=== PATIENT | female | born 1960 | race Caucasian/White ===

== ENCOUNTER 2019-06-25 12:52 | Emergency (ER) | payer OTHER ==
[2019-06-25] MEDS ORDERED: ONDANSETRON 4 MG TAB.RAPDIS PO ONE (13:16)
--- NOTE | 2019-06-25 13:16 | ER Document Report ---
ED Medical Screen (RME) - General Chief Complaint: Abdominal Pain Stated Complaint: ABDOMINAL PAIN Time Seen by Provider: 06/25/19 13:15 Mode of Arrival: Ambulatory Information source: Patient Notes: 58-year-old female presented to ED for complaint of left-sidedPain to her abdomen upper and lower started about a month ago said at times it felt like heartburn at other times she was just nauseated. She states sometimes she vomited up acid but most times it was just nausea or heartburn she states they have been the worst pain. She did vomit up some acid earlier today. She states she does not smoke cigarettes but she does vape occasionally drinks and does not use any drugs. I have greeted and performed a rapid initial assessment of this patient. A comprehensive ED assessment and evaluation of the patient, analysis of test results and completion of medical decision making process will be conducted by an additional ED providers. TRAVEL OUTSIDE OF THE [place] IN LAST 30 DAYS: No - Related Data Allergies/Adverse Reactions: No Known Allergies Allergy (Verified 06/25/19 12:54) Physical Exam - Vital signs Vitals: Temp Pulse Resp BP Pulse Ox 98.2 F 105 H 18 141/80 H 97 06/25/19 12:59 06/25/19 12:59 06/25/19 12:59 06/25/19 12:59 06/25/19 12:59 Course - Vital Signs Vital signs: Temp Pulse Resp BP Pulse Ox 98.2 F 105 H 18 141/80 H 97 06/25/19 12:59 06/25/19 12:59 06/25/19 12:59 06/25/19 12:59 06/25/19 12:59
[2019-06-25 13:45] LABS: ABSOLUTE BASOPHILS # (AUTO) 0.1 10^3/uL (0.0-0.2); ABSOLUTE EOSINOPHILS # (AUTO) 0.1 10^3/uL (0.0-0.6); ABSOLUTE LYMPHOCYTES (AUTO) 1.9 10^3/uL (0.5-4.7); ABSOLUTE MONOCYTES (AUTO) 1.2 10^3/uL (0.1-1.4); ABSOLUTE NEUT (AUTO) 15.8 10^3/uL (1.7-8.2); BASOPHILS % (AUTO) 0.6 % (0-2); EOSINOPHILS % (AUTO) 0.4 % (0-6); HEMATOCRIT 40.1 % (36.0-47.0); HEMOGLOBIN 13.3 g/dL (12.0-15.5); LYMPHOCYTES % (AUTO) 10.1 % (13-45); MEAN CORPUSCULAR HEMOGLOBIN 28.9 pg (27.0-33.4); MEAN CORPUSCULAR HGB CONC 33.1 g/dL (32.0-36.0); MEAN CORPUSCULAR VOLUME 87 fl (80-97); MONOCYTES % (AUTO) 6.3 % (3-13); PLATELET COUNT 386 10^3/uL (150-450); RED CELL DISTRIBUTION WIDTH 14.5 % (11.5-14.0); SEGMENTED NEUTROPHILS % (AUTO) 82.6 % (42-78); TOTAL CELLS COUNTED % (AUTO) 100 %; WHITE BLOOD COUNT 19.1 10^3/uL (4.0-10.5)
[2019-06-25 13:51] LABS: APPEARANCE,URINE CLEAR; BILIRUBIN,URINE NEGATIVE (NEGATIVE); COLOR,URINE YELLOW; GLUCOSE, URINE NEGATIVE (NEGATIVE); KETONES,URINE TRACE mg/dL (NEGATIVE); LEUKOCYTE ESTERASE,URINE NEGATIVE (NEGATIVE); NITRITE,URINE NEGATIVE (NEGATIVE); PROTEIN,URINE NEGATIVE (NEGATIVE); URINE SPECIFIC GRAVITY 1.016; UROBILINOGEN,URINE NEGATIVE mg/dL (<2.0)
[2019-06-25 14:02] LABS: ALBUMIN 4.6 g/dL (3.5-5.0); ALKALINE PHOSPHATASE 74 U/L (38-126); ANION GAP 13 (5-19); ASPARTATE AMINO TRANSFERASE 17 U/L (14-36); BILIRUBIN,DIRECT 0.4 mg/dL (0.0-0.4); BILIRUBIN,TOTAL 0.5 mg/dL (0.2-1.3); BLOOD UREA NITROGEN 14 mg/dL (7-20); CALCIUM 9.9 mg/dL (8.4-10.2); CARBON DIOXIDE 26 mmol/L (22-30); CHLORIDE 99 mmol/L (98-107); GLUCOSE 112 mg/dL (75-110); POTASSIUM 4.1 mmol/L (3.6-5.0)
--- NOTE | 2019-06-25 15:38 | ER Document Report ---
ED General - General Chief Complaint: Abdominal Pain Stated Complaint: ABDOMINAL PAIN Time Seen by Provider: 06/25/19 13:15 Primary Care Provider: KENNETH SZYMANSKI MD [ACTIVE STAFF] - Follow up as needed VANDA OLEA MD [ACTIVE STAFF] - Follow up as needed ABRAHAN BARRON MD [ACTIVE STAFF] - Follow up as needed Mode of Arrival: Ambulatory Information source: Patient Notes: This 58-year-old relatively healthy female presents emergency department with complaints of left lower quad abdominal pain. Reports pain has been coming and going for the past month. She reports she has vomited twice since yesterday. She reports the pain woke her up last night. Denies fever and diarrhea. Reports last bowel movement was this AM was normal. Reports history of divertic ulitis. TRAVEL OUTSIDE OF THE [place] IN LAST 30 DAYS: No - HPI Onset: Other Onset/Duration: Persistent, Waxing and waning Severity: Moderate Pain Level: 3 Associated symptoms: Nausea, Vomiting Exacerbated by: Denies Relieved by: Denies Similar symptoms previously: No Recently seen / treated by doctor: No - Related Data Allergies/Adverse Reactions: No Known Allergies Allergy (Verified 06/25/19 12:54) Past Medical History - General Information source: Patient Last Menstrual Period: 6 years ago, menopause - Social History Smoking Status: Never Smoker Cigarette use (# per day): No Frequency of alcohol use: Rare Drug Abuse: None Lives with: Family Family History: Reviewed & Not Pertinent Patient has suicidal ideation: No Patient has homicidal ideation: No GI Medical History: Reports: Hx Diverticulitis Past Surgical History: Reports: Hx Orthopedic Surgery - b/l shoulders, wrist Review of Systems - Review of Systems Notes: Review HPI for review of systems., All other systems negative Physical Exam - Vital signs Vitals: Temp Pulse Resp BP Pulse Ox 98.2 F 105 H 18 141/80 H 97 06/25/19 12:59 06/25/19 12:59 06/25/19 12:59 06/25/19 12:59 06/25/19 12:59 - General General appearance: Appears well, Alert In distress: None - HEENT Head: Normocephalic, Atraumatic Eyes: Normal Conjunctiva: Normal Extraocular movements intact: Yes Neck: Normal, Supple. No: Lymphadenopathy - Respiratory Respiratory status: No respiratory distress Chest status: Nontender Breath sounds: Normal Chest palpation: Normal - Cardiovascular Rhythm: Regular Heart sounds: Normal auscultation Murmur: No - Abdominal Inspection: Normal Distension: No distension Bowel sounds: Normal Tenderness: Tender Organomegaly: No organomegaly Adult front & back diagram: 1 - llq abd pain - Back Back: Normal, Nontender. No: CVA tenderness - Extremities General upper extremity: Normal ROM General lower extremity: Normal ROM - Neurological Neuro grossly intact: Yes Cognition: Normal Orientation: AAOx4 [place] Coma Scale Eye Opening: Spontaneous [place] Coma Scale Verbal: Oriented [place] Coma Scale Motor: Obeys Commands [place] Coma Scale Total: 15 Speech: Normal - Psychological Associated symptoms: Normal affect, Normal mood - Skin Skin Temperature: Warm Skin Moisture: Dry Skin Color: Normal Course - Re-evaluation Re-evalutation: 06/25/19 15:40 This 58-year-old female with complaints of left lower quad abdominal pain for th e past month that comes and goes. Reports history of diverticulitis. WBC is 19.1. Slight shift. Will evaluate with CT of the abdomen. 06/25/19 16:40 CT shows diverticulitis. Patient instructed on antibiotics. Offered pain medication accepted Tylenol with codeine and Zofran. Patient reports she will follow-up with GI for evaluation and colonoscopy because she is past due. Patient was instructed to return the hospital for fever increased pain concerns. She verbalized understanding to all instructions. Abdomen/Pelvis CT 06/25/19 00:00 IMPRESSION: 1. Sigmoid diverticulitis with no perforation or abscess. 2. Questionable thickening of the wall of the ascending and transverse colon versus mere nondistention. Is there history of inflammatory bowel disease? 06/25/19 13:25 06/25/19 13:25 MCV 87 fl (80-97) 06/25/19 13:25 MCH 28.9 pg (27.0-33.4) 06/25/19 13:25 MCHC 33.1 g/dL (32.0-36.0) 06/25/19 13:25 RDW 14.5 % (11.5-14.0) H 06/25/19 13:25 Seg Neutrophils % 82.6 % (42-78) H 06/25/19 13:25 Chloride 99 mmol/L (98-107) 06/25/19 13:25 Carbon Dioxide 26 mmol/L (22-30) 06/25/19 13:25 Anion Gap 13 (5-19) 06/25/19 13:25 Est GFR ( Amer) > 60 (>60) 06/25/19 13:25 Glucose 112 mg/dL (75-110) H 06/25/19 13:25 Calcium 9.9 mg/dL (8.4-10.2) 06/25/19 13:25 Total Bilirubin 0.5 mg/dL (0.2-1.3) 06/25/19 13:25 AST 17 U/L (14-36) 06/25/19 13:25 Alkaline Phosphatase 74 U/L (38-126) 06/25/19 13:25 Total Protein 8.0 g/dL (6.3-8.2) 06/25/19 13:25 Albumin 4.6 g/dL (3.5-5.0) 06/25/19 13:25 Urine Color YELLOW 06/25/19 13:25 Urine Appearance CLEAR 06/25/19 13:25 Urine pH 6.0 (5.0-9.0) 06/25/19 13:25 Ur Specific [place] 1.016 06/25/19 13:25 Urine Protein NEGATIVE mg/dL (NEGATIVE) 06/25/19 13:25 Urine Glucose (UA) NEGATIVE mg/dL (NEGATIVE) 06/25/19 13:25 Urine Ketones TRACE mg/dL (NEGATIVE) H 06/25/19 13:25 Urine Blood MODERATE (NEGATIVE) H 06/25/19 13:25 Urine Nitrite NEGATIVE (NEGATIVE) 06/25/19 13:25 Ur Leukocyte Esterase NEGATIVE (NEGATIVE) 06/25/19 13:25 Urine WBC (Auto) 0 /HPF 06/25/19 13:25 Urine RBC (Auto) 8 /HPF 06/25/19 13:25 06/25/19 18:26 Dictation of this chart was performed using voice recognition software; therefore, there may be some unintended grammatical errors. - Vital Signs Vital signs: Temp Pulse Resp BP Pulse Ox 98.6 F 95 18 128/70 H 97 06/25/19 16:45 06/25/19 16:45 06/25/19 16:45 06/25/19 16:45 06/25/19 16:45 - Laboratory Result Diagrams: 06/25/19 13:25 06/25/19 13:25 Laboratory results interpreted by me: 06/25/19 06/25/19 06/25/19 13:25 13:25 13:25 WBC 19.1 H RDW 14.5 H Lymph % (Auto) 10.1 L Absolute Neuts (auto) 15.8 H Seg Neutrophils % 82.6 H Glucose 112 H Urine Ketones TRACE H Urine Blood MODERATE H - Diagnostic Test Radiology reviewed: Image reviewed, Reports reviewed Discharge - Discharge Clinical Impression: Left lower quadrant abdominal pain, Diverticulitis Condition: Stable Disposition: HOME, SELF-CARE Instructions: Abdominal Pain ([facility]), Acetaminophen with Codeine ([facility]), Ci profloxacin ([facility]), Diverticulitis ([facility]), Family Physicians / Practices, Gastroenterology, Metronidazole ([facility]) Additional Instructions: *You have been evaluated for abdominal pain, diverticulitis *Take medication as prescribed *Follow up with a primary care provider within one week *Follow up with gastroenterology within one week to schedule a colonoscopy *Return to ED for worsening condition, changes, needs, fever, increased pain *Return to ED if not better in 24 hours Monitor your blood pressure. Your blood pressure was elevated today. This may be because you were anxious, in pain or because you need medication. It is important to follow up with your primary care provider for full evaluation. Prescriptions: Acetaminophen with Codeine [Tylenol #3 Tablet] 1 each PO Q4HP PRN #20 tablet PRN Reason: Ciprofloxacin HCl [Cipro 500 mg Tablet] 500 mg PO BID #20 tablet Metronidazole [Flagyl 500 mg Tablet] 500 mg PO TID #15 tablet Promethazine HCl [Phenergan 25 mg Tablet] 25 - 50 mg PO ASDIR PRN #12 tablet PRN Reason: Forms: Elevated Blood Pressure Referrals: KENNETH SZYMANSKI MD [ACTIVE STAFF] - Follow up as needed ABRAHAN BARRON MD [ACTIVE STAFF] - Follow up as needed VANDA OLEA MD [ACTIVE STAFF] - Follow up as needed
--- NOTE | 2019-06-25 16:11 | RADIOLOGY REPORT (SQ) ---
EXAM DESCRIPTION: CT ABD/PELVIS WITH IV ONLY COMPLETED DATE/TIME: 06/25/2019 3:44 pm REASON FOR STUDY: ABD PAIN COMPARISON: None. TECHNIQUE: CT scan of the abdomen and pelvis performed using helical scanning technique with dynamic intravenous contrast injection. No oral contrast. Images reviewed with lung, soft tissue, and bone windows. Reconstructed coronal and sagittal MPR images reviewed. Delayed images for evaluation of the urinary system also acquired. All images stored on PACS. All CT scanners at this facility use dose modulation, iterative reconstruction, and/or weight based d osing when appropriate to reduce radiation dose to as low as reasonably achievable (ALARA). [facility]: Dose Right [facility]: CareDose [facility]: Dose Right [facility]: Teradose 4D [facility]: [employer] CONTRAST TYPE AND DOSE: contrast/concentration: Isovue 350.00 mg/ml; Total Contrast Delivered: 81.0 ml; Total Saline Delivered: 68.0 ml RENAL FUNCTION: BUN 14 creatinine 0.7 RADIATION DOSE: CT Rad equipment meets quality standard of care and radiation dose reduction techniq ues were employed. CTDIvol: 8.4 - 11.8 mGy. DLP: 1188 mGy-cm.. LIMITATIONS: None. FINDINGS: LOWER CHEST: No significant findings. No nodules or infiltrates. LIVER: The liver is diffusely, mildly hypoattenuating. No mass. SPLEEN: Normal size. No focal lesions. PANCREAS: No masses. No significant calcifications. No adjacent inflammation or peripancreatic fluid collections. Pancreatic duct not dilated. GALLBLADDER: No identified stones by CT criteria. No inflammatory changes to suggest cholecystitis. ADRENAL GLANDS: No significant masses or asymmetry. RIGHT KIDNEY AND URETER: No solid masses. No significant calcifications. No hydronephrosis or hyd roureter. LEFT KIDNEY AND URETER: No solid masses. No significant calcifications. No hydronephrosis or hydr oureter. AORTA AND VESSELS: No aneurysm. No dissection. Renal arteries, SMA, celiac without stenosis. RETROPERITONEUM: No retroperitoneal adenopathy, hemorrhage or masses. BOWEL AND PERITONEAL CAVITY: Sigmoid diverticulosis with associated inflammatory changes. See images 67 through 74. There is no evidence perforation. There is no abscess. Questionable mild thickenin g of the wall of the ascending and transverse colon versus mere nondistention. APPENDIX: Normal. PELVIS: No mass. No free fluid. Normal bladder. ABDOMINAL WALL: No masses. No hernias. BONES: No significant or acute findings. OTHER: No other significant finding. IMPRESSION: 1. Sigmoid diverticulitis with no perforation or abscess. 2. Questionable thickening of the wall of the ascending and transverse colon versus mere nondistenti on. Is there history of inflammatory bowel disease? TECHNICAL DOCUMENTATION: JOB ID: [id number] Quality ID # [id number]: Final reports with documentation of one or more dose reduction techniques (e.g., Au tomated exposure control, adjustment of the mA and/or kV according to patient size, use of iterative reconstruction technique) 2010 [employer]- All Rights Reserved Reading location - IP/workstation name: [email or web address]
[2019-06-25] MEDS ORDERED: CIPROFLOXACIN HCL 500 MG TABLET PO ONE (16:38)
[2019-06-25] MEDS ORDERED: METRONIDAZOLE 500 MG TABLET PO ONE (16:38)
[2019-06-25 16:48] VITALS: BP 128/70
== END 2019-06-25 16:54 | disposition home or self-care (01) ==
LOC: ER 12:52
DX: K57.92 Diverticulitis of intestine, part unspecified, without perforation or abscess without bleeding (principal); R10.32 Left lower quadrant pain; R11.2 Nausea with vomiting, unspecified
CPT/HCPCS: 99284; 36415; 87086; 85025; 80053; 81001; 74177; S0119

== ENCOUNTER 2019-08-23 17:47 | Inpatient (IN) | payer OTHER ==
--- NOTE | 2019-08-23 18:24 | ER Document Report ---
ED Medical Screen (RME) - General Chief Complaint: Abdominal Pain Stated Complaint: SEVERE ABDOMINAL PAIN Time Seen by Provider: 08/23/19 18:20 Mode of Arrival: Ambulatory Information source: Patient Notes: 58-year-old female presents to ED for complaint of left upper abdominal pain that started last night. She states she has been getting worse and worse all day. She states she vomited just before coming into the emergency room and it looks like soy sauce. She states that the only thing she is consumed today is limiting water, shobha caryl, and 6 saltine crackers. She stated that last night she had some pizza. She states that her stools today have been dark tarry looking. Patient is alert and oriented respirations regular nonlabored. She states she recently had diverticulitis they put her on the medication but she has not felt 100% since then. Patient has not had a colonoscopy yet. I have greeted and performed a rapid initial assessment of this patient. A comp rehensive ED assessment and evaluation of the patient, analysis of test results and completion of medical decision making process will be conducted by an additional ED providers. TRAVEL OUTSIDE OF THE [place] IN LAST 30 DAYS: No - Related Data Allergies/Adverse Reactions: No Known Allergies Allergy (Verified 06/25/19 12:54) Past Medical History GI Medical History: Reports: Hx Diverticulitis Past Surgical History: Reports: Hx Orthopedic Surgery - b/l shoulders, wrist Physical Exam - Vital signs Vitals: Temp Pulse Resp BP Pulse Ox 97.5 F 107 H 12 148/89 H 100 08/23/19 17:55 08/23/19 17:55 08/23/19 17:55 08/23/19 17:55 08/23/19 17:55 Course - Vital Signs Vital signs: Temp Pulse Resp BP Pulse Ox 97.5 F 107 H 12 148/89 H 100 08/23/19 17:55 08/23/19 17:55 08/23/19 17:55 08/23/19 17:55 08/23/19 17:55
[2019-08-23 19:14] LABS: ABSOLUTE BASOPHILS # (AUTO) 0.1 10^3/uL (0.0-0.2); ABSOLUTE EOSINOPHILS # (AUTO) 0.1 10^3/uL (0.0-0.6); ABSOLUTE LYMPHOCYTES (AUTO) 2.1 10^3/uL (0.5-4.7); ABSOLUTE MONOCYTES (AUTO) 0.7 10^3/uL (0.1-1.4); ABSOLUTE NEUT (AUTO) 9.9 10^3/uL (1.7-8.2); BASOPHILS % (AUTO) 0.6 % (0-2); EOSINOPHILS % (AUTO) 0.9 % (0-6); HEMATOCRIT 40.3 % (36.0-47.0); HEMOGLOBIN 13.4 g/dL (12.0-15.5); LYMPHOCYTES % (AUTO) 16.3 % (13-45); MEAN CORPUSCULAR HEMOGLOBIN 28.8 pg (27.0-33.4); MEAN CORPUSCULAR HGB CONC 33.3 g/dL (32.0-36.0); MEAN CORPUSCULAR VOLUME 87 fl (80-97); MONOCYTES % (AUTO) 5.3 % (3-13); PLATELET COUNT 409 10^3/uL (150-450); RED BLOOD COUNT 4.65 10^6/uL (3.72-5.28); RED CELL DISTRIBUTION WIDTH 15.4 % (11.5-14.0); SEGMENTED NEUTROPHILS % (AUTO) 76.9 % (42-78); TOTAL CELLS COUNTED % (AUTO) 100 %; WHITE BLOOD COUNT 12.8 10^3/uL (4.0-10.5)
[2019-08-23 19:22] LABS: APPEARANCE,URINE CLEAR; BILIRUBIN,URINE NEGATIVE (NEGATIVE); COLOR,URINE STRAW; GLUCOSE, URINE NEGATIVE (NEGATIVE); KETONES,URINE NEGATIVE (NEGATIVE); PROTEIN,URINE NEGATIVE (NEGATIVE); URINE SPECIFIC GRAVITY 1.008; UROBILINOGEN,URINE NEGATIVE mg/dL (<2.0)
[2019-08-23 19:33] LABS: ALBUMIN 4.5 g/dL (3.5-5.0); ALKALINE PHOSPHATASE 67 U/L (38-126); ANION GAP 11 (5-19); ASPARTATE AMINO TRANSFERASE 16 U/L (14-36); BILIRUBIN,DIRECT 0.3 mg/dL (0.0-0.4); BILIRUBIN,TOTAL 0.3 mg/dL (0.2-1.3); BLOOD UREA NITROGEN 18 mg/dL (7-20); CARBON DIOXIDE 26 mmol/L (22-30); CHLORIDE 103 mmol/L (98-107); GLUCOSE 104 mg/dL (75-110); POTASSIUM 4.7 mmol/L (3.6-5.0)
[2019-08-23] MEDS ORDERED: ONDANSETRON HCL INJ/PF 4 MG/2 ML SDV IV ONE (22:02)
[2019-08-23] MEDS ORDERED: PANTOPRAZOLE SODIUM 40 MG VIAL IV ONE (22:28)
[2019-08-23] MEDS ORDERED: DICYCLOMINE HCL INJ 20 MG/2 ML AMPULE IM ONE (23:24)
[2019-08-23 23:47] LABS: HEMATOCRIT 37.9 % (36.0-47.0); HEMOGLOBIN 12.6 g/dL (12.0-15.5); MEAN CORPUSCULAR HEMOGLOBIN 28.7 pg (27.0-33.4); MEAN CORPUSCULAR HGB CONC 33.2 g/dL (32.0-36.0); MEAN CORPUSCULAR VOLUME 87 fl (80-97); PLATELET COUNT 379 10^3/uL (150-450); RED BLOOD COUNT 4.38 10^6/uL (3.72-5.28); RED CELL DISTRIBUTION WIDTH 15.3 % (11.5-14.0)
[2019-08-23] MEDS ORDERED: METOCLOPRAMIDE HCL INJ/PF 10 MG/2 ML SDV IV ONE (23:57)
[2019-08-24] MEDS ORDERED: PANTOPRAZOLE SODIUM 40 MG VIAL IV PRN (00:11)
[2019-08-24] MEDS ORDERED: RINGERS SOLUTION,LACTATED 1,000 ML IV ONE (00:53)
[2019-08-24] MEDS ORDERED: RINGERS SOLUTION,LACTATED 1,000 ML IV PRN (00:53)
[2019-08-24] MEDS ORDERED: ONDANSETRON HCL INJ/PF 4 MG/2 ML SDV IV PRN ×2 (00:59→07:40)
--- NOTE | 2019-08-24 01:36 | RADIOLOGY REPORT (SQ) ---
EXAM DESCRIPTION: XR ABDOMEN SUPINE AND ERECT WITH CHEST (ABD ACUTE SERIES) COMPLETED DATE/TME: 08/23/2019 23:25 CLINICAL HISTORY: 58 years, Female, abd pain, N/V, h/o ulcers, evaluate for free air COMPARISON: CT 06/25/2019 NUMBER OF VIEWS: 3 TECHNIQUE: Upright chest with supine and erect views of the abdomen LIMITATIONS: None. FINDINGS: The heart size is normal. Mild atheromatous change thoracic aorta. Mild elevation right hemidiaphragm. Subsegmental atelectasis left lung base. No pneumothorax. No free air under the hemidiaphragms. The bowel gas pattern is nonspecific. IMPRESSION: No acute cardiopulmonary process. Nonspecific bowel gas pattern copyright 2010 [employer]- All Rights Reserved
--- NOTE | 2019-08-24 01:43 | PDOC H&P ---
History of Present Illness Admission Date/PCP: 08/24/2019 Patient complains of: abdominal pains with vomiting History of Present Illness: RODOLFO OG is a 58 year old femalewith history of peptic ulcer about 23 years ago has been taking Ibuprofen 2x/week for past 2-3 years suddenly c/o LUQ p ains08/22/19 followed by Tarry stools am of 08/23/19 then vomiting coffee ground material 5 pm and followed by another vomiting same material in ED at 10:30 pm.Her Hb initially was 13.4 and 5 hrs later 12.6. She is still c/o LUQ pains but appears to be getting better in the ED. Denies fever or chills. Past Medical History GI Medical History: Reports: Diverticulitis Past Surgical History Past Surgical History: Reports: Orthopedic Surgery - b/l shoulders, wrist Social History Smoking Status: Former Smoker Electronic Cigarette use?: No Family History Family History: Reviewed & Not Pertinent Parental Family History Reviewed: Yes Children Family History Reviewed: No Sibling(s) Family History Reviewed.: No Medication/Allergy Home Medications: Acetaminophen with Codeine [Tylenol #3 Tablet] 1 each PO Q4HP PRN #20 tablet 06/25/19 Ciprofloxacin HCl [Cipro 500 mg Tablet] 500 mg PO BID #20 tablet 06/25/19 Metronidazole [Flagyl 500 mg Tablet] 500 mg PO TID #15 tablet 06/25/19 Promethazine HCl [Phenergan 25 mg Tablet] 25 - 50 mg PO ASDIR PRN #12 tablet 06/25/19 Allergies/Adverse Reactions: No Known Allergies Allergy (Verified 06/25/19 12:54) Review of Systems Constitutional: PRESENT: as per HPI Gastrointestinal: PRESENT: abdominal pain, coffee ground emesis, melena Musculoskeletal: PRESENT: back pain Physical Exam Vital Signs: Temp Pulse Resp BP Pulse Ox 97.5 F 107 H 12 148/89 H 100 08/23/19 17:55 08/23/19 17:55 08/23/19 17:55 08/23/19 17:55 08/23/19 17:55 Intake & Output 08/22/19 08/23/19 08/24/19 06:59 06:59 06:59 Weight 71.9 kg General appearance: PRESENT: mild distress Head exam: PRESENT: atraumatic Eye exam: PRESENT: conjunctiva pink Mouth exam: PRESENT: dry mucosa Neck exam: PRESENT: full ROM Respiratory exam: PRESENT: clear to auscultation johnnie Cardiovascular exam: PRESENT: RRR Pulses: PRESENT: normal radial pulses Vascular exam: PRESENT: normal capillary refill GI/Abdominal exam: PRESENT: soft, tenderness - LUQ Rectal exam: PRESENT: deferred Extremities exam: PRESENT: full ROM Musculoskeletal exam: PRESENT: ambulatory Neurological exam: PRESENT: alert, oriented to person, oriented to place, oriented to time, oriented to situation Psychiatric exam: PRESENT: appropriate affect Skin exam: PRESENT: normal color, warm Results Laboratory Results: 08/23/19 23:30 08/23/19 18:50 08/23/19 08/23/19 08/23/19 18:50 18:50 18:50 WBC 12.8 H RBC 4.65 Hgb 13.4 Hct 40.3 MCV 87 MCH 28.8 MCHC 33.3 RDW 15.4 H Plt Count 409 Seg Neutrophils % 76.9 Sodium 140.1 Potassium 4.7 Chloride 103 Carbon Dioxide 26 Anion Gap 11 BUN 18 Creatinine 0.58 Est GFR ( Amer) > 60 Glucose 104 Calcium 10.0 Total Bilirubin 0.3 AST 16 Alkaline Phosphatase 67 Total Protein 8.0 Albumin 4.5 Lipase 34.4 Urine Color Urine Appearance Urine pH Ur Specific [place] Urine Protein Urine Glucose (UA) Urine Ketones Urine Blood Urine RBC (Auto) Blood Type A POSITIVE Antibody Screen NEGATIVE 08/23/19 08/23/19 18:50 23:30 WBC 14.0 H RBC 4.38 Hgb 12.6 Hct 37.9 MCV 87 MCH 28.7 MCHC 33.2 RDW 15.3 H Plt Count 379 Seg Neutrophils % Sodium Potassium Chloride Carbon Dioxide Anion Gap BUN Creatinine Est GFR ( Amer) Glucose Calcium Total Bilirubin AST Alkaline Phosphatase Total Protein Albumin Lipase Urine Color STRAW Urine Appearance CLEAR Urine pH 7.0 Ur Specific [place] 1.008 Urine Protein NEGATIVE Urine Glucose (UA) NEGATIVE Urine Ketones NEGATIVE Urine Blood SMALL H Urine RBC (Auto) 3 Blood Type Antibody Screen Assessment & Plan - Diagnosis (1) Upper GI bleed Is this a current diagnosis for this admission?: Yes - Time Time Spent: 30 to 50 Minutes - Inpatient Certification Medical Necessity: Need For IV Fluids, Need for Surgery - Plan Summary Plan Summary: 58 yo female with with history of peptic ulcer disease 23 years ago has chronic use of Ibuprofen c/o LUQ pains 2 days ago followed by hematemesis yesterday with slight decrease in Hb. Plans: Hydrate Start antacid regimen For Upper endoscopy today by Dr Loyola
--- NOTE | 2019-08-24 01:53 | ER Document Report ---
Entered by YOLI LANGLEY SCRIBE 08/23/19 [id number] Acting as scribe for:WILFRID MONCADA DO ED GI/ - General Chief Complaint: Vomiting Stated Complaint: SEVERE ABDOMINAL PAIN Time Seen by Provider: 08/23/19 18:20 Mode of Arrival: Ambulatory Information source: Patient Notes: Patient is a 58-year-old female who presents to the emergency department today with complaints of coffee-ground emesis along with dark tarry stool. Patient states that she has a remote history of peptic ulcers. Patient states she first had peptic ulcers when she was around the age of 9 or 10. Patient states the last time she has had any problems with ulcers was about 25 years ago. Patient states she cannot remember much of anything about the treatment for her ulcers. Patient does admit to taking ibuprofen at least a couple times a week for her chronic back pain. Patient states that she has not seen a primary care physician in 4 to 5 years. Patient states she has had mild intermittent abdominal aching which began last night along with feeling "acidy". Patient denies any usage of blood thinning medications, recent endoscopy, or history of abdominal surgeries. TRAVEL OUTSIDE OF THE [place] IN LAST 30 DAYS: No - Related Data Allergies/Adverse Reactions: No Known Allergies Allergy (Verified 06/25/19 12:54) Past Medical History - General Information source: Patient - Social History Smoking Status: Former Smoker - Quit January 2019 Cigarette use (# per day): No Chew tobacco use (# tins/day): No Frequency of alcohol use: Rare Drug Abuse: None Lives with: Spouse/Significant other Family History: Reviewed & Not Pertinent Patient has suicidal ideation: No Patient has homicidal ideation: No GI Medical History: Reports: Hx Diverticulitis, Hx Ulcer Past Surgical History: Reports: Hx Orthopedic Surgery - b/l shoulders, wrist Review of Systems - Review of Systems Constitutional: No symptoms reported EENT: No symptoms reported Cardiovascular: No symptoms reported Respiratory: No symptoms reported Gastrointestinal: See HPI, Nausea, Vomiting, Black stools, Other - Coffee-ground emesis Genitourinary: No symptoms reported Female Genitourinary: No symptoms reported Musculoskeletal: No symptoms reported Skin: No symptoms reported Hematologic/Lymphatic: No symptoms reported Neurological/Psychological: No symptoms reported -: Yes All other systems reviewed and negative Physical Exam - Vital signs Vitals: Temp Pulse Resp BP Pulse Ox 97.5 F 107 H 12 148/89 H 100 08/23/19 17:55 08/23/19 17:55 08/23/19 17:55 08/23/19 17:55 08/23/19 17:55 Interpretation: Tachycardic - Notes Notes: Vomiting in room - General General appearance: Alert In distress: Mild - HEENT Head: Normocephalic, Atraumatic Eyes: Normal Pupils: PERRL - Respiratory Respiratory status: No respiratory distress Chest status: Nontender Breath sounds: Normal Chest palpation: Normal - Cardiovascular Rhythm: Regular Heart sounds: Normal auscultation Murmur: No - Abdominal Inspection: Normal Distension: No distension. No: Distended, Tympanitic, Fluid wave Bowel sounds: Normal Tenderness: Tender - LUQ. No: Guarding, Rebound Organomegaly: No organomegaly - Back Back: Normal, Nontender - Extremities General upper extremity: Normal inspection, Nontender, Normal color, Normal ROM, Normal temperature General lower extremity: Normal inspection, Nontender, Normal color, Normal ROM, Normal temperature, Normal weight bearing. No: Edenilson's sign - Neurological Neuro grossly intact: Yes Cognition: Normal Orientation: AAOx4 Samara Coma Scale Eye Opening: Spontaneous Samara Coma Scale Verbal: Oriented [place] Coma Scale Motor: Obeys Commands Samara Coma Scale Total: 15 Speech: Normal Motor strength normal: LUE, RUE, LLE, RLE Sensory: Normal - Psychological Associated symptoms: Normal affect, Normal mood - Skin Skin Temperature: Warm Skin Moisture: Dry Skin Color: Normal Course - Re-evaluation Re-evalutation: 08/24/19 23:57 Patient complains of a headache, Reglan ordered. Repeat hemoglobin is 12.6. 08/24/19 00:15 Patient is a 58-year-old female who comes in with coffee-ground emesis. Repeat hemoglobin has dropped to 1.5 hours. Patient has a history of ulcers but that is remote. She has been taking ibuprofen. Protonix bolus ordered and drip ordered. Discussed with Dr. Preston who will evaluate the patient is Dr. Loyola should be able to scope in the morning. 08/24/19 00:45 Spoke with hospitalist service. Dr. Blake does not feel that this patient needs to be admitted medically. Asked that surgery admit the patient. 08/24/19 01:[address] Preston who will admit the patient to the surgical service. 08/24/19 01:52 Patient is more comfortable at this time. Improved with Protonix, Bentyl, Zofran, Reglan. No further vomiting. Patient is n.p.o. with fluids running and Protonix drip. Stable at the time of admission. - Vital Signs Vital signs: Temp Pulse Resp BP Pulse Ox 97.5 F 107 H 12 148/89 H 100 08/23/19 17:55 08/23/19 17:55 08/23/19 17:55 08/23/19 17:55 08/23/19 17:55 - Laboratory Result Diagrams: 08/23/19 23:30 08/23/19 18:50 Laboratory results interpreted by me: 08/23/19 08/23/19 08/23/19 18:50 18:50 23:30 WBC 12.8 H 14.0 H RDW 15.4 H 15.3 H Absolute Neuts (auto) 9.9 H Urine Blood SMALL H Critical Care Note - Critical Care Note Total time excluding time spent on procedures (mins): 45 - Evaluation and management of upper GI bleed, multiple re-evaluations, coronation of admission, counseling patient and family Discharge - Discharge Clinical Impression: Upper GI bleed Condition: Stable Disposition: ADMITTED INPATIENT Admitting Provider: Surgicalist Ariel Preston Unit Admitted: Medical Floor I personally performed the services described in the documentation, reviewed and edited the documentation which was dictated to the scribe in my presence, and it accurately records my words and actions.
[2019-08-24 07:33] LABS: ABSOLUTE BASOPHILS # (AUTO) 0.1 10^3/uL (0.0-0.2); ABSOLUTE EOSINOPHILS # (AUTO) 0.1 10^3/uL (0.0-0.6); ABSOLUTE MONOCYTES (AUTO) 0.7 10^3/uL (0.1-1.4); ABSOLUTE NEUT (AUTO) 8.2 10^3/uL (1.7-8.2); BASOPHILS % (AUTO) 0.7 % (0-2); EOSINOPHILS % (AUTO) 0.5 % (0-6); HEMATOCRIT 35.5 % (36.0-47.0); MEAN CORPUSCULAR HEMOGLOBIN 29.2 pg (27.0-33.4); MEAN CORPUSCULAR HGB CONC 33.9 g/dL (32.0-36.0); MEAN CORPUSCULAR VOLUME 86 fl (80-97); PLATELET COUNT 358 10^3/uL (150-450); RED BLOOD COUNT 4.11 10^6/uL (3.72-5.28); SEGMENTED NEUTROPHILS % (AUTO) 74.8 % (42-78); TOTAL CELLS COUNTED % (AUTO) 100 %
[2019-08-24 07:47] LABS: INTERNATIONAL RATION (INR) 1.01; PROTHROMBIN TIME 13.3 SEC (11.4-15.4)
[2019-08-24] MEDS ORDERED: ONDANSETRON HCL INJ/PF 4 MG/2 ML SDV ONE (07:50)
[2019-08-24] MEDS ORDERED: PROPOFOL INJ 200 MG/20 ML VIAL IV ONE (08:51)
[2019-08-24] MEDS ORDERED: MIDAZOLAM 2 MG/2 ML INJ ONE (08:51)
[2019-08-24] MEDS ORDERED: INFLUENZA QUAD (6MOS+) 2019-20 VAC 0.5 ML SYR IM ONE (10:00)
[2019-08-24] MEDS ORDERED: DIPHENHYDRAMINE HCL 50 MG/ML VIAL IV PRN (11:16)
[2019-08-24] MEDS ORDERED: MEPERIDINE HCL/PF INJ 25 MG/1 ML DISP.SYRIN IV PRN (11:16)
[2019-08-24] MEDS ORDERED: FENTANYL CITRATE INJ/PF 100 MCG/2 ML AMPUL IV PRN ×2 (11:16)
[2019-08-24] MEDS ORDERED: PROMETHAZINE HCL INJ 25 MG/1 ML VIAL IV PRN (11:16)
[2019-08-24 14:33] VITALS: BP 143/82
--- NOTE | 2019-08-24 15:18 | Progress Note ---
Provider Note Provider Note: Patient with complaints of vomiting coffee-ground emesis. I have discussed EGD with the patient. She is agreeable to the examination. Risks/benefits reviewed, informed consent obtained, and all questions answered.
--- NOTE | 2019-08-24 15:24 | Operative Report ---
Nonrecallable Operative Report DATE OF SURGERY: 08/24/19 PREOPERATIVE DIAGNOSIS: Abdominal pain and coffee-ground emesis POSTOPERATIVE DIAGNOSIS: 1. Large, prepyloric ulcer. 2. Duodenitis. 3. Hiatal hernia, small. 4. Reflux esophagitis OPERATION: EGD with biopsy. SURGEON: [place] [facility] ANESTHESIA: LMAC TISSUE REMOVED OR ALTERED: 1. Prepyloric ulcer biopsy. 2. Duodenum. 3. Gastric antrum. 4. Distal esophagus. COMPLICATIONS: None apparent. ESTIMATED BLOOD LOSS: Minimal PROCEDURE: Procedure in detail: After informed consent was obtained, the patient was brought into the operating room and laid in the left lateral decubitus position. The endoscope was passed down the oropharynx, down the esophagus, and into the stomach. The stomach was insufflated with air. Upon entering into the stomach, there was some old blood present. There is no active bleeding. The scope was pushed into the antrum of the stomach. In the prepyloric position, a large ulcerated area was easily identified. Biopsies were taken at the margin of the ulcer and within the ulcer bed. These were sent for pathologic examination. The scope was then pushed through the pylorus and into the first and second portions of the duodenum. The second portion of the duodenum appeared normal. The first portion of the duodenum appeared inflamed. Biopsy was taken at the most inflamed portion. The scope was pulled back into the body of the stomach. An antral biopsy was taken to rule out H. pylori. A retroflexion maneuver was performed, noting a small hiatal hernia. The scope was then straightened. The scope was pulled up into the distal esophagus. There was evidence of severe reflux esophagitis. Biopsies were taken in the distal esophagus. The scope was then withdrawn up the remainder of the esophagus. The remainder of the esophagus was smooth in contour without masses, lesions, ulcerations, or other abnormalities. The scope was then removed from the oropharynx, and the procedure was concluded. All sponge, instrument, and needle counts were correct x2. Condition: Stable.
--- NOTE | 2019-08-24 15:49 | PDOC DISCHARGE SUMMARY ---
General - Admit/Disc Date/PCP Admission Date/Primary Care Provider: 08/24/19 02:15 Discharge Date: 08/24/19 - Discharge Diagnosis Final Diagnosis: Gastric ulcer, gastritis, hiatal hernia, upper GI bleeding, abdominal pain, reflux esophagitis. - Assessment Summary: 58 y/o F with a h/o abdominal pain, coffee-ground emesis, and daily NSAID use presented for further workup. She was taken to the OR for EGD where gastritis, gastric ulcer, reflux, and a hiatal hernia were found. No active bleeding was noted. After treatment with carafate and protonix she was feeling much better. She was then felt to be fit for discharge. - Additional Information Resuscitation Status: Full Code Discharge Diet: As Tolerated Discharge Activity: Activity As Tolerated Home Medications: No Home Medications 08/24/19 Additional Information: d/c home. diet: as tolerated. Activity: as tolerated. F/u with me next week. History of Present Illiness History of Present Illness: RODOLFO OG is a 58 year old female Physical Exam Vital Signs: Temp Pulse Resp BP Pulse Ox 97.7 F 103 H 17 143/82 H 97 08/24/19 14:19 08/24/19 14:19 08/24/19 14:19 08/24/19 14:19 08/24/19 14:19 Intake & Output 08/23/19 08/24/19 08/25/19 06:59 06:59 05:59 Intake Total 1000 1550 Output Total 0 Balance 1000 1550 Weight 72 kg Results Laboratory Results: WBC 11.0 10^3/uL (4.0-10.5) H 08/24/19 07:14 RBC 4.11 10^6/uL (3.72-5.28) 08/24/19 07:14 Hgb 12.0 g/dL (12.0-15.5) 08/24/19 07:14 Hct 35.5 % (36.0-47.0) L 08/24/19 07:14 MCV 86 fl (80-97) 08/24/19 07:14 MCH 29.2 pg (27.0-33.4) 08/24/19 07:14 MCHC 33.9 g/dL (32.0-36.0) 08/24/19 07:14 RDW 15.0 % (11.5-14.0) H 08/24/19 07:14 Plt Count 358 10^3/uL (150-450) 08/24/19 07:14 Lymph % (Auto) 18.0 % (13-45) 08/24/19 07:14 [place] % (Auto) 6.0 % (3-13) 08/24/19 07:14 Eos % (Auto) 0.5 % (0-6) 08/24/19 07:14 Baso % (Auto) 0.7 % (0-2) 08/24/19 07:14 Absolute Neuts (auto) 8.2 10^3/uL (1.7-8.2) 08/24/19 07:14 Absolute Lymphs (auto) 2.0 10^3/uL (0.5-4.7) 08/24/19 07:14 Absolute Monos (auto) 0.7 10^3/uL (0.1-1.4) 08/24/19 07:14 Absolute Eos (auto) 0.1 10^3/uL (0.0-0.6) 08/24/19 07:14 Absolute Basos (auto) 0.1 10^3/uL (0.0-0.2) 08/24/19 07:14 Seg Neutrophils % 74.8 % (42-78) 08/24/19 07:14 PT 13.3 SEC (11.4-15.4) 08/24/19 07:14 INR 1.01 08/24/19 07:14 Sodium 140.1 mmol/L (137-145) 08/23/19 18:50 Potassium 4.7 mmol/L (3.6-5.0) 08/23/19 18:50 Chloride 103 mmol/L (98-107) 08/23/19 18:50 Carbon Dioxide 26 mmol/L (22-30) 08/23/19 18:50 Anion Gap 11 (5-19) 08/23/19 18:50 BUN 18 mg/dL (7-20) 08/23/19 18:50 Creatinine 0.58 mg/dL (0.52-1.25) 08/23/19 18:50 Est GFR ( Amer) > 60 (>60) 08/23/19 18:50 Est GFR (MDRD) Non-Af > 60 (>60) 08/23/19 18:50 Glucose 104 mg/dL (75-110) 08/23/19 18:50 Calcium 10.0 mg/dL (8.4-10.2) 08/23/19 18:50 Total Bilirubin 0.3 mg/dL (0.2-1.3) 08/23/19 18:50 Direct Bilirubin 0.3 mg/dL (0.0-0.4) 08/23/19 18:50 Neonat Total Bilirubin Not Reportable 08/23/19 18:50 Neonat Direct Bilirubin Not Reportable 08/23/19 18:50 Neonat Indirect Bili Not Reportable 08/23/19 18:50 AST 16 U/L (14-36) 08/23/19 18:50 ALT 12 U/L (<35) 08/23/19 18:50 Alkaline Phosphatase 67 U/L (38-126) 08/23/19 18:50 Total Protein 8.0 g/dL (6.3-8.2) 08/23/19 18:50 Albumin 4.5 g/dL (3.5-5.0) 08/23/19 18:50 Lipase 34.4 U/L (23-300) 08/23/19 18:50 Urine Color STRAW 08/23/19 18:50 Urine Appearance CLEAR 08/23/19 18:50 Urine pH 7.0 (5.0-9.0) 08/23/19 18:50 Ur Specific [place] 1.008 08/23/19 18:50 Urine Protein NEGATIVE mg/dL (NEGATIVE) 08/23/19 18:50 Urine Glucose (UA) NEGATIVE mg/dL (NEGATIVE) 08/23/19 18:50 Urine Ketones NEGATIVE mg/dL (NEGATIVE) 08/23/19 18:50 Urine Blood SMALL (NEGATIVE) H 08/23/19 18:50 Urine Nitrite (Reflex) NEGATIVE (NEGATIVE) 08/23/19 18:50 Urine Bilirubin NEGATIVE (NEGATIVE) 08/23/19 18:50 Urine Urobilinogen NEGATIVE mg/dL (<2.0) 08/23/19 18:50 Leukocyte Esterase Rfl NEGATIVE (NEGATIVE) 08/23/19 18:50 Urine RBC (Auto) 3 /HPF 08/23/19 18:50 Urine Bacteria (Auto) 3+ /HPF 08/23/19 18:50 Urine WBC (Reflex) 1 /HPF 08/23/19 18:50 Squamous Epi Cells Auto <1 /HPF 08/23/19 18:50 Urine Mucus (Auto) RARE /LPF 08/23/19 18:50 Urine Ascorbic Acid NEGATIVE (NEGATIVE) 08/23/19 18:50 POC Gastric Occult Bld POSITIVE (NEGATIVE) 08/23/19 22:11 Blood Type A POSITIVE 08/23/19 18:50 Antibody Screen NEGATIVE 08/23/19 18:50 Impressions: Acute Abdomen Series 08/23/19 23:25 IMPRESSION: No acute cardiopulmonary process. Nonspecific bowel gas pattern copyright 2010 [employer]- All Rights Reserved
[2019-08-24] MEDS ORDERED: SUCRALFATE 1 GM TABLET PO SCH (16:00)
[2019-08-24] MEDS ORDERED: PANTOPRAZOLE SODIUM 40 MG TABLET.DR PO SCH (17:00)
== END 2019-08-24 16:15 | disposition home or self-care (01) | DRG 379 ==
LOC: ER 17:47 → EH 08-24 02:15 → 3W 08-24 03:50
PROVIDERS: ATTEND Surgery
PROC: 0DB78ZX Excision of Stomach, Pylorus, Via Natural or Artificial Opening Endoscopic, Diagnostic (ICD-10-PCS; 2019-08-24)
PROC: 0DB18ZX Excision of Upper Esophagus, Via Natural or Artificial Opening Endoscopic, Diagnostic (ICD-10-PCS; 2019-08-24)
PROC: 0DB98ZX Excision of Duodenum, Via Natural or Artificial Opening Endoscopic, Diagnostic (ICD-10-PCS; principal; 2019-08-24 10:00)
DX: K92.0 Hematemesis (principal); K25.9 Gastric ulcer, unspecified as acute or chronic, without hemorrhage or perforation; K44.9 Diaphragmatic hernia without obstruction or gangrene; K29.80 Duodenitis without bleeding; K21.9 Gastro-esophageal reflux disease without esophagitis; Z87.891 Personal history of nicotine dependence
CPT/HCPCS: 36415; 74022; 80053; 81001; 83690; 85025; 85610; 86850; 86900; 86901; 88305; C9113; J0500; J2250; J2405; J2704; J2765; J3490; J7120